=== PATIENT | male | born 1960 | race Caucasian/White ===

== ENCOUNTER 2017-06-13 10:18 | Day surgery (SDC) | payer BC ==
[~2017-06-13] VITALS: Ht 175.3 cm; Wt 82.7 kg
[2017-06-13 11:02] VITALS: BP 137/89
[2017-06-13] MEDS ORDERED: LACTATED RINGERS 1,000 ML IV SCH (11:11)
[2017-06-13] MEDS ORDERED: JANUVIA (11:14)
[2017-06-13] MEDS ORDERED: GLIMEPIRIDE PO (11:14)
[2017-06-13] MEDS ORDERED: ATORVASTATIN (11:14)
[2017-06-13 12:02] LABS: ALANINE AMINOTRANSFERASE 35 U/L (12-78); ALBUMIN 3.5 g/dL (3.4-5.0); ANION GAP 9 mmol/L (5-15); CALCIUM 8.4 mg/dL (8.5-10.1); CHLORIDE 109 mmol/L (98-107)
[2017-06-13 12:05] LABS: ALKALINE PHOSPHATASE 92 U/L (45-117); BILIRUBIN,TOTAL 0.5 mg/dL (0.2-1.0); CREATININE 0.97 mg/dL (0.7-1.3); TOTAL PROTEIN 6.7 g/dL (6.4-8.2)
[2017-06-13] MEDS ORDERED: MIDAZOLAM 1 MG/ML, 2ML ONE (12:34)
[2017-06-13] MEDS ORDERED: FENTANYL PF 250 MCG/5ML ONE (12:34)
[2017-06-13] MEDS ORDERED: OXYcodone IR 5MG TABLET ONE (12:35)
[2017-06-13] MEDS ORDERED: ACETAMINOPHEN 500 MG TABLET ONE (12:35)
[2017-06-13] MEDS ORDERED: SCOPOLAMINE PATCH, 1.5MG PATCH.TD72 TD ONE ×2 (12:35→13:00)
[2017-06-13] MEDS ORDERED: ONDANSETRON ODT 8 MG ONE (12:35)
[2017-06-13] MEDS ORDERED: BUPIVACAINE/PF 0.5% ONE (12:43)
[2017-06-13] MEDS ORDERED: NEOMY/POLYMYXIN B GU IRR. 1 ML IRRIG ONE (12:43)
[2017-06-13] MEDS ORDERED: EPINEPHRINE 1 MG/ML, 1ML ONE (12:43)
[2017-06-13] MEDS ORDERED: THROMBIN 5,000 UNIT VIAL TP ONE (12:44)
[2017-06-13] MEDS ORDERED: DEXAMETHASONE 4 MG/ML, 1ML ONE (12:58)
[2017-06-13] MEDS ORDERED: SUCCINYLCHOLINE 20 MG/ML, 10ML ONE (12:58)
[2017-06-13] MEDS ORDERED: PROPOFOL 10 MG/ML, 20ML ONE (12:58)
[2017-06-13] MEDS ORDERED: ROCURONIUM 10 MG/ML,10ML ONE (12:58)
[2017-06-13] MEDS ORDERED: KETOROLAC 30 MG/1 ML ONE (12:58)
[2017-06-13] MEDS ORDERED: CEFAZOLIN 1,000 MG ONE (12:58)
[2017-06-13] MEDS ORDERED: ONDANSETRON ODT 8 MG PO ONE (13:00)
[2017-06-13] MEDS ORDERED: ACETAMINOPHEN 500 MG TABLET PO ONE (13:00)
[2017-06-13] MEDS ORDERED: OXYcodone IR 5MG TABLET PO ONE (13:00)
[2017-06-13] MEDS ORDERED: FENTANYL PF 100 MCG/2ML IV PRN (14:00)
[2017-06-13] MEDS ORDERED: hydrALAzine 20 MG/ML, 1ML IV PRN (14:00)
[2017-06-13] MEDS ORDERED: ONDANSETRON 2MG/ML, 2ML IVPush PRN (14:00)
[2017-06-13] MEDS ORDERED: MEPERIDINE/PF 25MG/0.5ML IVPush PRN (14:00)
[2017-06-13] MEDS ORDERED: morphine SULFATE 10 MG/ML, 1ML IV PRN (14:00)
[2017-06-13] MEDS ORDERED: PROMETHAZINE 12.5 MG SUPP PR PRN (14:00)
[2017-06-13] MEDS ORDERED: ALBUTEROL SULFATE 2.5 MG/3 ML NPPB PRN (14:00)
[2017-06-13] MEDS ORDERED: MIDAZOLAM 1 MG/ML, 2ML IV PRN (14:00)
[2017-06-13] MEDS ORDERED: OXYcodone 5 MG/5 ML ORAL.SOL UDC PO PRN (14:00)
[2017-06-13] MEDS ORDERED: LABETALOL 5MG/ML, 20ML IV PRN (14:00)
[2017-06-13] MEDS ORDERED: FENTANYL PF 100 MCG/2ML ONE (15:38)
[2017-06-13] MEDS ORDERED: HYDROcodone/APAP 5/325 TABLET ONE (18:32)
[2017-06-13] MEDS ORDERED: HYDROcodone/APAP 5/325 TABLET PO PRN (19:00)
== END 2017-06-13 18:54 | disposition home or self-care (01) ==
LOC: OUT 10:18
PROVIDERS: ATTEND Urology
DX: N35.8 Other urethral stricture (principal); E11.9 Type 2 diabetes mellitus without complications; E78.5 Hyperlipidemia, unspecified; I10 Essential (primary) hypertension
CPT/HCPCS: 36415; 53899; 72170; 76000; 80053; C1758; C1769; J0171; J0330; J0690; J1100; J1885; J2250; J2704; J3010; J3490; J7120; Q0162